=== PATIENT | female | born 1960 | race Hispanic/Latino ===

== ENCOUNTER → 2018-08-22 | Day surgery (SDC) | payer OTHER ==
[~2018-08-22] MED LIST: ALEVE220 M1 PO; BYSTOLIC10 MG PO; DICLOFENAC SODI75 MG PO; DICYCLOMINE HCL10 MG PO; FENTANYL CITRATE/PF 100MCG/2 ML INJ ONE; FLUOXETINE HCL20 M1 PO; GABAPENTIN300 MG PO; HYOSCYAMINE SULFATE 0.5 MG/ML INJ ONE; LOSARTAN POTASS50 MG PO; LYRICA200 MG PO; MELOXICAM15 MG PO; METHADONE HCL10 MG PO; MIDAZOLAM HCL 2 MG/2 ML VIAL ONE; MULTI-VITAMIN1 EACH PO; NORCO 7.5-3251 EACH PO; PAROXETINE HCL40 MG PO; PRO AIR INH; PROPOFOL IV EMULSION 10 MG/ML 20 ML VIAL ONE; PROPOFOL IV EMULSION 10 MG/ML 50 ML VIAL ONE; SIMVASTATIN40 MG PO; TIZANIDINE HCL4 MG PO
[2018-08-22 16:41] LABS: ALBUMIN 3.9 g/dL (3.5-5.0); BILIRUBIN,DIRECT 0.2 mg/dL (0.0-0.5)
== END | disposition home or self-care (01) ==
LOC: OR 10:14
PROVIDERS: ATTEND Internal Medicine Gastroenterology
DX: Z12.11 Encounter for screening for malignant neoplasm of colon (principal); D12.4 Benign neoplasm of descending colon; K62.1 Rectal polyp; K29.70 Gastritis, unspecified, without bleeding; Q40.8 Other specified congenital malformations of upper alimentary tract; K20.9 Esophagitis, unspecified; K21.9 Gastro-esophageal reflux disease without esophagitis; K64.8 Other hemorrhoids; I10 Essential (primary) hypertension; Z01.810 Encounter for preprocedural cardiovascular examination; Z68.37 Body mass index [BMI] 37.0-37.9, adult
CPT/HCPCS: 36415; 43239; 45384; 45385; 80076; 93005; J1980; J2250; J2704; 45378

== ENCOUNTER 2019-03-17 14:36 | Inpatient (IN) | payer OTHER ==
[~2019-03-17] VITALS: Ht 167.6 cm; Wt 84.8 kg
[~2019-03-17 14:36] MED LIST changes: -FENTANYL CITRATE/PF 100MCG/2 ML INJ ONE; -HYOSCYAMINE SULFATE 0.5 MG/ML INJ ONE; -MIDAZOLAM HCL 2 MG/2 ML VIAL ONE; -PROPOFOL IV EMULSION 10 MG/ML 20 ML VIAL ONE; -PROPOFOL IV EMULSION 10 MG/ML 50 ML VIAL ONE
--- OUTSIDE RECORDS SUMMARY | 2019-03-17 14:41 | XMS REPORT ---
Author Author [facility] Address Unknown Phone Unavailable Care Team Providers Care Clerical Order Filler Name Role Phone Unavailable Unavailable Payers Payer Name Policy Type Policy Number Effective Date Expiration Date Problems This patient has no known problems. Allergies, Adverse Reactions, Alerts Allergy Name Allergy Type Status Severity Reaction(s) Onset Date Inactive Date Treating Clinician Comments No Known Allergies DA Active U 2019-03-17 00:00:00 No Known Allergies DA Active U 2011-04-28 00:00:00 Medications This patient has no known medications.
[2019-03-17] MEDS ORDERED: ONDANSETRON HCL INJ 2MG/ML 2ML 2 MG/ML VIAL IV ONE (16:00)
[2019-03-17] MEDS ORDERED: MORPHINE SULFATE 2 MG/ML SYR 1ML IV STA (16:00)
[2019-03-17] MEDS ORDERED: MORPHINE SULFATE INJ 4 MG/ML INJ 1ML IV ONE (16:15)
[2019-03-17] MEDS ORDERED: MORPHINE SULFATE INJ 4 MG/ML INJ 1ML ONE (17:23)
[2019-03-17] MEDS ORDERED: ONDANSETRON HCL INJ 2MG/ML 2ML 2 MG/ML VIAL ONE (17:23)
[2019-03-17] MEDS ORDERED: D5.45%NS/KCL 20MEQ 1,000 ML IV SCH (17:33)
[2019-03-17] MEDS ORDERED: ONDANSETRON HCL INJ 2MG/ML 2ML 2 MG/ML VIAL IV PRN (17:45)
[2019-03-17] MEDS ORDERED: LEVOFLOXACIN 500MG/D5W 100ML IV SCH (17:45)
[2019-03-17] MEDS ORDERED: MORPHINE SULFATE 2 MG/ML SYR 1ML IV PRN (17:45)
--- NOTE | 2019-03-17 17:50 | NUR ---
PT TO BE TRANSFERED TO [facility]. PT AND FAMILY AWARE OF POC, PT VITAL SIGNS STABLE, PT VOICES NO COMPLAINTS AT THIS TIME.
--- NOTE | 2019-03-17 17:54 | NUR ---
[facility] CALLED FOR TRANSPORT ETA 45MINS
[2019-03-17] MEDS ORDERED: METRONIDAZOLE 500MG/NS 100ML IV SCH (18:00)
[2019-03-17] MEDS ORDERED: LEVOFLOXACIN 500MG/D5W 100ML 100 ML IV ONE (18:04)
[2019-03-17 20:00] VITALS: BP 167/77
[2019-03-17] MEDS ORDERED: ACETAMINOPHEN 325 MG TAB PO PRN (20:00)
[2019-03-17] MEDS ORDERED: TIZANIDINE HCL 4 MG TAB PO PRN (20:00)
[2019-03-17] MEDS ORDERED: HYDRALAZINE HCL 20 MG/ML VIAL IV PRN (20:00)
--- NOTE | 2019-03-17 20:00 | NUR ---
RECEIVED PATIENT IN STABLE CONDITION, AOX4, NO RESPIRATORY DISTRESS NOTED. PATIENT VOICED THAT SHE FELT A SHARP PAIN ON HER LEFT SIDE AND TOOK PAIN MEDICATION A COUPLE OF HOURS AGO FOR IT. MEDICATION IS DUE IN ANOTHER HOUR AND A HALF. PATIENT SPEAKS LIMITED FRISIAN, FAMILY AT BEDSIDE, BED IN LOWEST POSITION AND LOCKED, SIDE RAILS ARE UP, CALL LIGHT WITHIN EASY REACH WILL CONTINUE TO MONITOR.
[2019-03-17] MEDS ORDERED: MORPHINE SULFATE INJ 4 MG/ML INJ 1ML IV PRN (20:15)
[2019-03-17 21:15] VITALS: BP 167/77
--- NOTE | 2019-03-17 21:15 | NUR ---
PATIENT STATED THAT HER PAIN WAS BETTER, NO SIGNS OF DISTRESS NOTED, WILL CONTINUE TO MONITOR.
[2019-03-17] MEDS: DICYCLOMINE HCL 10 MG CAP PO SCH (21:19)
[2019-03-17 22:48] VITALS: BP 167/77
[2019-03-18] VITALS: BP 150/72
[2019-03-18] MEDS: METRONIDAZOLE 500MG/NS 100ML 100 ML IV SCH ×3 (00:40→07:05)
[2019-03-18] MEDS ORDERED: PANTOPRAZOLE 40 MG 10ML VIAL IV SCH (01:15)
--- NOTE | 2019-03-18 01:15 | NUR ---
SPOKE WITH DR. JIMENEZ, HE ORDERED A HIDA SCAN FOR 07:00 AM, AND A STOOL SAMPLE FOR OCCULT BLOOD.
[2019-03-18 04:00] VITALS: BP 135/63
[2019-03-18 06:15] LABS: BASOPHILS % 0.3 % (0.0-1.0); EOSINOPHILS % 0.3 % (0.0-6.0); HEMATOCRIT 31.5 % (34.2-44.1); HEMOGLOBIN 10.4 g/dL (12.0-16.0); LYMPHOCYTES # (AUTO) 3.4 (1.0-3.2); LYMPHOCYTES % 34.5 % (18.0-39.1); MEAN CORPUSCULAR HEMOGLOBIN 29.1 pg (28-32); MEAN CORPUSCULAR VOLUME 88.2 fL (81-99); MONOCYTES # (AUTO) 0.7 (0.2-0.8); MONOCYTES % 7.4 % (4.4-11.3); NEUTROPHILS # (AUTO) 5.6 (2.1-6.9); RED BLOOD COUNT 3.57 x10e6/uL (3.6-5.1); RED CELL DISTRIBUTION WIDTH 15.1 % (11.7-14.4)
[2019-03-18 06:23] LABS: PLATELET COUNT 46 x10e3/uL (140-360)
--- NOTE | 2019-03-18 06:31 | NUR ---
WALKED UP AND DOWN THE HALLS WITH PATIENT, NO PROBLEMS WITH GAIT NOTED.
[2019-03-18 06:50] LABS: ANION GAP 11.1 mmol/L (8-16); BLOOD UREA NITROGEN 7 mg/dL (7-26); BUN/CREATININE RATIO 12 (6-25); CALCIUM 8.8 mg/dL (8.4-10.2); CARBON DIOXIDE 26 mmol/L (22-29); CHLORIDE 106 mmol/L (98-107); EST GLOMERULAR FILTRATION RATE > 60 ML/MIN (60-); GLUCOSE 117 mg/dL (74-118); POTASSIUM 3.1 mmol/L (3.5-5.1); SODIUM 140 mmol/L (136-145)
--- NOTE | 2019-03-18 07:00 | NUR ---
The pt. was received form the off-going nurse in bed awake and without c/o pain at this time. Bed rails are elevated times two. The pt. was reminded of her N P O and no pain med status and she confirms adherence to same.
[2019-03-18 07:59] VITALS: BP 182/95
--- NOTE | 2019-03-18 08:30 | NUR ---
The pt. expressed the desire to go outside to smoke and was advised he this is a nonsmoking facility and if she is caught she could be discharged from the hospital. She is schedule for a Hida scan and I spoke with radiology for a time line and is approximately going at 0930. The pt's bp is elevated and was given her med with a sip of water.
[2019-03-18 08:56] LABS: HYPOCHROMASIA SLIGHT; PLATELET ESTIMATE MARKEDLY DECREASED; PLATELET MORPHOLOGY COMMENT NORMAL; RBC MORPHOLOGY COMMENT NORMAL
[2019-03-18] MEDS ORDERED: LOSARTAN POTASSIUM 25 MG TAB PO SCH (09:00)
[2019-03-18] MEDS ORDERED: NON-FORMULARY MEDICATION (Losartan Potassium 50 MG) PO SCH (09:00)
[2019-03-18] MEDS ORDERED: MULTIVITAMINS/MINERALS TAB PO SCH (09:00)
[2019-03-18] MEDS: DICYCLOMINE HCL 10 MG CAP PO SCH (09:04)
[2019-03-18 09:28] VITALS: BP 182/95
[2019-03-18 11:00] VITALS: BP 181/75
--- NOTE | 2019-03-18 11:47 | NUR ---
The pt continues to wait for the Hida scan and Dr. Colón is here for rounds but the pt. refuses to speak with him even by building energy retrofit technician and wishes to leave AMA. The pt. refuses to sign the paperwork for AMA but all services have stopped at this time. The iv was removed and the pt. is waiting for transportation.
--- NOTE | 2019-03-18 12:48 | NUR ---
The pt. has left the building after I spoke with the daughter to explain what happened.
[2019-03-18] MEDS ORDERED: LEVOFLOXACIN 500MG/D5W 100ML 100 ML IV SCH (18:00)
--- NOTE | 2019-03-18 19:10 | History and Physical ---
CHIEF COMPLAINT: Abdominal pain, nausea, vomiting, diarrhea. HISTORY OF PRESENT ILLNESS: This is a 58-year-old female, who is a very poor historian and does not want to give us any information, who comes in with apparently complaints of abdominal pain, nausea, vomiting, and some diarrhea. I tried interviewing the patient at bedside. She refused to give me any information and recently just left against medical advice from [facility] on yesterday with similar findings. I brought in a android platform developer to speak with the patient. She would like to give me any information at all. Imaging studies were consistent with pancolitis requiring further intervention and evaluation. REVIEW OF SYSTEMS: Pertinent positives abdominal pain, nausea, vomiting, diarrhea. Unable to obtain the rest of the 14-point review of systems as the patient is very noncompliant. ALLERGIES: NO KNOWN DRUG ALLERGIES. MEDICATIONS: Dicyclomine 10 mg p.o. t.i.d., losartan 50 mg daily. Multivitamin daily, tizanidine 4 mg p.o. t.i.d. PAST MEDICAL HISTORY: Chronic pain, hypertension. SURGICAL HISTORY: Unable to obtain. FAMILY HISTORY: Unable to obtain, the patient is noncooperative. SOCIAL HISTORY: We know that she is a smoker. Do not know the number of years. She is noncooperative with the amount of alcohol or any drugs. PHYSICAL EXAMINATION: VITAL SIGNS: Temperature 96.6, pulse 51, respiratory rate is 18, blood pressure was 182/95, pulse ox 96% on room air. LAB FINDINGS: Show white count 9.8, hemoglobin 10.4, hematocrit is 31.5, platelets of 46. Sodium 140, potassium 3.1, chloride 106, bicarb 26, anion gap of 11, BUN 7, glucose 117, calcium 8.8. IMAGING STUDIES: None. PHYSICAL EXAMINATION: GENERAL: Not in acute distress. Alert and oriented x3. Cooperative for examination. HEENT: Head is normocephalic and atraumatic. Eyes; pupils are equal, round, and reactive to light bilaterally. Extraocular movements are intact bilaterally. Throat, no evidence of erythema or exudates in the posterior pharynx. Has poor dentition. NECK: Supple. Good range of motion throughout. PULMONARY: Clear to auscultation bilaterally. No wheezing, no rales, no rhonchi, no crackles appreciated. CARDIOVASCULAR: Positive S1, S2. No murmurs, rubs, or gallops appreciated. ABDOMEN: Soft, nondistended, and nontender to palpation. Bowel sounds present. MUSCULOSKELETAL: Strength is 5/5 throughout. No evidence of any muscle deficits on examination. No weakness appreciated. NEUROLOGICAL: Cranial nerves II through XII grossly intact. No evidence of any neurological deficits on exam. SKIN: Intact. Warm to touch. Good cap refill. PSYCHIATRIC: Normal affect and mood. EXTREMITIES: No edema. Good range of motion throughout. IMPRESSION: 1. Pancolitis. 2. Abdominal pain, nausea, vomiting, and diarrhea. 3. Thrombocytopenia. 4. Anemia. PLAN: At this time, continue with IV antibiotics. Flagyl and Levaquin. Was consulted due to the pancolitis. Continue with pain control. Clear liquid diet. Resume same home medications. During my interview today, the patient is very noncompliant, did not want to tell me her entire story. Instead, she wants to leave against medical advice. She refused to sign any documentation. Had nurses as witnesses and also use a middleware engineer to talk with the patient. Apparently, the patient speaks Mauritanian, but refuses to speak to me and said want to speak in Kyrgyz, which was okay using a android platform developer. She still does not want to make her entire story. At this time, she wants to leave against medical advice. I advised her not to leave against medical advice that she need more further workup, but she insisted. The patient left against medical advice. MD WADE Robertson/MATT /[id number]
--- NOTE | 2019-03-19 07:37 | Discharge Summary ---
FINAL DISCHARGE DIAGNOSES: 1. Pancolitis. 2. Anemia. 3. Thrombocytopenia. 4. Abdominal pain, nausea, and vomiting. 5. Left against medical advice. CONSULTANTS: GI. PHYSICAL EXAMINATION: VITAL SIGNS: Temperature 96.6, pulse 52, respiratory rate is 18, blood pressure is 184/95, pulse ox 96% on room air. LABORATORY DATA: Labs show white count 9.8, hemoglobin 10.4, hematocrit 32, and platelets of 46. Chemistry; sodium 140, potassium 3.1, chloride 106, bicarb is 26, anion gap of 11, BUN 7, creatinine 6, glucose 117, calcium 8.8. IMAGING STUDIES: CT abdomen and pelvis with IV contrast from an outside neighbor's emergency room performed on 11/28/2018, was found to show diverticular disease, but otherwise no evidence of diverticulitis. HOSPITAL COURSE: A 58-year-old female, who apparently has underlying pancolitis, came in with abdominal pain, nausea, and vomiting. The patient was started on IV antibiotics with Levaquin and Flagyl. GI was consulted. The following day, I came to evaluate the patient, discussed overall plan of care and also discussed with her the etiology along with the patient. She refused to talk to anyone. Refused to talk to the nursing staff, refused to talk to me. I did not understand exactly the cause of her etiology. I did send her a GI specialist to see her. She left against medical advice to [facility] earlier this week. At this time, the patient does not want to stay at the hospital leaving against medical advice. This was witnessed by the nursing staff. We will continue to treat the patient if she wants to stay and get more information from her and send to the appropriate consultants. At this time, she is not interested and left against medical advice. On the day of discharge, the patient left against medical advice. DISPOSITION: Left AMA. CONDITION: Left against medical advice. In the event of any worsening symptoms, the patient was advised to come back to the ED for further evaluation. Discharge summary greater than 35 minutes. Once again, the patient left against medical advice and this was witnessed by the nursing staff, nurse taking care of the patient, probation agent, and charge nurse. MD WADE Robertson/MODL /[id number]
== END 2019-03-18 12:47 | disposition left against medical advice (07) | DRG 386 ==
LOC: FSED 14:36 → ERHOLD 17:39 → MED/SURG3 19:27
PROVIDERS: ADMIT Internal Medicine; ATTEND Internal Medicine
DX: K51.00 Ulcerative (chronic) pancolitis without complications (principal); D69.3 Immune thrombocytopenic purpura; D64.9 Anemia, unspecified; I10 Essential (primary) hypertension; K21.9 Gastro-esophageal reflux disease without esophagitis
CPT/HCPCS: 36415; 80048; 80053; 85025; 99284; J1956; J2270; J2405